=== PATIENT | female | born 1990 | race Caucasian/White ===

== ENCOUNTER → 2020-10-31 | Outpatient (REF) | payer BC ==
[2020-10-31 17:15] LABS: HEMOGLOBIN 13.4 g/dl (12.0-15.5); MEAN CORPUSCULAR HEMOGLOBIN 32.3 pg (27.0-33.0); MEAN CORPUSCULAR HGB CONC 33.5 g/dl (32.0-36.5); MEAN CORPUSCULAR VOLUME 96.4 fl (80.0-96.0); PLATELET COUNT, AUTOMATED 286 10^3/uL (150-450); RED BLOOD COUNT 4.15 10^6/uL (4.00-5.40); WHITE BLOOD COUNT 10.7 10^3/uL (4.0-10.0)
[2020-10-31 18:40] LABS: HEPATITIS C VIRUS ABY INDEX < 0.0 INDEX (<0.8); HIV 1&2 SCREEN CENTAUR NEGATIVE (NEGATIVE)
== END ==
LOC: M PLALAB 15:01
PROVIDERS: ATTEND Advanced Practice Midwife
DX: Z34.91 Encounter for supervision of normal pregnancy, unspecified, first trimester (principal)

== ENCOUNTER 2021-05-30 19:01 | Inpatient (IN) | payer BC ==
[~2021-05-30] VITALS: Ht 177.8 cm; Wt 75.1 kg
[~2021-05-30 19:01] MED LIST: COLA100C5 PO; IBUP80TA PO; MAPA500T2 PO; MILK120011 PO; VITAPRTA PO
[2021-05-30] MEDS ORDERED: LIDOCAINE 1% MDV 20ML VIAL INFIL PRN (20:25)
[2021-05-30] MEDS ORDERED: LR 1,000 ML IV SCH (20:25)
[2021-05-30] MEDS ORDERED: OXYTOCIN DRIP 30 UNITS in IV 1 EA IV PRN (20:25)
[2021-05-30] MEDS ORDERED: PROMETHAZINE INJ 25 MG/ML VIAL (J2550) IV ONE (20:40)
[2021-05-30] MEDS ORDERED: BUTORPHANOL 2 MG/ML INJ (J0595) IV ONE (20:40)
[2021-05-30 20:47] LABS: HEMATOCRIT 40.5 % (36.0-47.0); HEMOGLOBIN 13.1 g/dl (12.0-15.5); MEAN CORPUSCULAR HEMOGLOBIN 29.9 pg (27.0-33.0); MEAN CORPUSCULAR HGB CONC 32.3 g/dl (32.0-36.5); MEAN CORPUSCULAR VOLUME 92.5 fl (80.0-96.0); PLATELET COUNT, AUTOMATED 281 10^3/uL (150-450); RED BLOOD COUNT 4.38 10^6/uL (4.00-5.40); WHITE BLOOD COUNT 11.9 10^3/uL (4.0-10.0)
[2021-05-31] MEDS ORDERED: OXYTOCIN 30 UNITS IN 0.9% NaCl 500ML IV BAG (J2590) As Ordered ONE (03:29)
[2021-05-31] MEDS ORDERED: RHOGAM 300 MCG (1500 IU) INJ (J2790) IM SCH (04:10)
[2021-05-31] MEDS ORDERED: IBUPROFEN 800 MG TAB PO PRN (04:10)
[2021-05-31] MEDS ORDERED: ACETAMINOPHEN TAB 650MG DOSE (2X325MG) PO PRN (04:10)
[2021-05-31] MEDS ORDERED: DOCUSATE SODIUM 100MG CAPSULE PO PRN (04:10)
[2021-05-31] MEDS ORDERED: OXYTOCIN DRIP 30 UNITS in IV 1 EA IV SCH (04:10)
[2021-05-31] MEDS ORDERED: METHYLERGONOVINE MALEATE 0.2 MG TAB PO PRN (04:10)
[2021-05-31] MEDS ORDERED: MOM 30ML SUSPENSION UDC PO PRN (04:10)
[2021-05-31] MEDS ORDERED: MEASLES,MUMPS,RUBELLA VACCINE INJ (MMR-II) (90707) SC SCH (04:10)
[2021-05-31] MEDS ORDERED: ACETAMINOPHEN 500 MG TAB PO PRN (04:10)
[2021-05-31] MEDS ORDERED: DIBUCAINE 1% OINTMENT 30GM TOP PRN (04:10)
[2021-05-31] MEDS ORDERED: IBUPROFEN 600MG TAB PO PRN (04:10)
[2021-05-31 06:00] VITALS: BP 125/69
[2021-05-31] MEDS: PRENATAL VITAMINS CHEWABLE TABLET PO SCH (09:15)
[2021-05-31 17:58] VITALS: BP 125/65
[2021-06-01 06:00] VITALS: BP 123/63
[2021-06-01] MEDS: PRENATAL VITAMINS CHEWABLE TABLET PO SCH (08:09)
[2021-06-01] MEDS ORDERED: PRENCHW PO (10:38)
[2021-06-01] MEDS ORDERED: ACET-683 PO (10:38)
[2021-06-01] MEDS ORDERED: IBUP80TA PO (10:38)
== END 2021-06-01 12:00 | disposition home or self-care (01) | DRG 560 ==
LOC: M LDO 19:01 → M LDI 19:59 → M OBS 05-31 05:59
PROVIDERS: ADMIT Obstetrics & Gynecology; ATTEND Obstetrics & Gynecology
PROC: 10E0XZZ Delivery of Products of Conception, External Approach (ICD-10-PCS; principal; 2021-05-31)
DX: O48.0 Post-term pregnancy (principal); Z37.0 Single live birth; Z3A.40 40 weeks gestation of pregnancy

== ENCOUNTER → 2021-09-10 | Outpatient (REF) | payer BC ==
[~2021-09-10] MED LIST changes: +ACET-683 PO; +PRENCHW PO
== END ==
LOC: M SFHCWAGY 16:54
PROVIDERS: ATTEND Obstetrics & Gynecology
DX: Z01.419 Encounter for gynecological examination (general) (routine) without abnormal findings (principal)

== ENCOUNTER → 2022-08-11 | Outpatient (REF) | payer OTHER | LOC: M LAB REF 18:57 | PROVIDERS: ATTEND Physician Assistant | DX: R30.0 Dysuria (principal) ==

== ENCOUNTER → 2023-04-19 | Outpatient (CLI) | payer OTHER ==
[2023-04-19 11:55] LABS: HEMATOCRIT 42.1 % (36.0-47.0); HEMOGLOBIN 14.1 g/dl (12.0-15.5); MEAN CORPUSCULAR HEMOGLOBIN 31.8 pg (27.0-33.0); MEAN CORPUSCULAR HGB CONC 33.5 g/dl (32.0-36.5); MEAN CORPUSCULAR VOLUME 94.8 fl (80.0-96.0); PLATELET COUNT, AUTOMATED 311 10^3/uL (150-450); RED BLOOD COUNT 4.44 10^6/uL (4.00-5.40); WHITE BLOOD COUNT 8.7 10^3/uL (4.0-10.0)
[2023-04-19 13:40] LABS: HIV 1&2 SCREEN NEGATIVE (NEGATIVE)
[2023-04-19 13:47] LABS: HEPATITIS C VIRUS ABY INDEX 0.04 INDEX (<0.8)
[2023-04-19 14:05] LABS: GC DNA AMPLIFICATION NEGATIVE (NEGATIVE)
== END ==
LOC: M PLALAB 08:31
PROVIDERS: ATTEND Advanced Practice Midwife
DX: Z34.91 Encounter for supervision of normal pregnancy, unspecified, first trimester (principal)

== ENCOUNTER → 2023-06-23 | Outpatient (CLI) | payer OTHER | LOC: M WHC 14:02 | PROVIDERS: ATTEND Advanced Practice Midwife | DX: Z34.82 Encounter for supervision of other normal pregnancy, second trimester (principal) ==

== ENCOUNTER → 2023-08-08 | Outpatient (CLI) | payer OTHER ==
[2023-08-08 13:24] LABS: HEMATOCRIT 39.7 % (36.0-47.0); HEMOGLOBIN 12.8 g/dl (12.0-15.5); MEAN CORPUSCULAR HEMOGLOBIN 31.7 pg (27.0-33.0); MEAN CORPUSCULAR HGB CONC 32.2 g/dl (32.0-36.5); MEAN CORPUSCULAR VOLUME 98.3 fl (80.0-96.0); PLATELET COUNT, AUTOMATED 278 10^3/uL (150-450); RED BLOOD COUNT 4.04 10^6/uL (4.00-5.40); WHITE BLOOD COUNT 10.8 10^3/uL (4.0-10.0)
[2023-08-08 15:13] LABS: CHLAMYDIA DNA AMPLIFICATION NEGATIVE (NEGATIVE); GC DNA AMPLIFICATION NEGATIVE (NEGATIVE)
== END ==
LOC: M PLALAB 08:16
PROVIDERS: ATTEND Advanced Practice Midwife
DX: Z34.92 Encounter for supervision of normal pregnancy, unspecified, second trimester (principal)

== ENCOUNTER → 2023-08-17 | Outpatient (CLI) | payer OTHER | LOC: M LAB 06:31 | PROVIDERS: ATTEND Advanced Practice Midwife | DX: O99.810 Abnormal glucose complicating pregnancy (principal); Z3A.00 Weeks of gestation of pregnancy not specified ==

== ENCOUNTER → 2023-10-20 | Outpatient (REF) | payer OTHER | LOC: M SFHCWAGY 12:20 | PROVIDERS: ATTEND Specialist | DX: Z34.83 Encounter for supervision of other normal pregnancy, third trimester (principal) ==

== ENCOUNTER → 2024-02-14 | Outpatient (REF) | payer OTHER ==
[~2024-02-14] MED LIST changes: +IBUP-1022 PO
[2024-02-16 14:43] LABS: HPV APTIMA Not Detected (Not Detected)
== END ==
LOC: M SFHCWAGY 15:12
PROVIDERS: ATTEND Nurse Practitioner Women's Health
DX: Z12.4 Encounter for screening for malignant neoplasm of cervix (principal)
CPT/HCPCS: 87624; G0123

== ENCOUNTER → 2024-10-07 | Outpatient (REF) | payer OTHER | LOC: M LAB REF 20:24 | PROVIDERS: ATTEND Student in an Organized Health Care Education/Training Program | DX: R30.0 Dysuria (principal) ==